=== PATIENT | female | born 1985 ===

== ENCOUNTER 2020-07-16 10:40 | Emergency (ER) | payer SELFPAY ==
[~2020-07-16] VITALS: Ht 165.1 cm; Wt 75.0 kg
[2020-07-16 10:42] VITALS: BP 136/86; Ht 165.1 cm; Wt 75.0 kg
[2020-07-16] MEDS ORDERED: EPIPEN 2-P0.3 MG/0.3 IM (10:43)
[2020-07-16] MEDS ORDERED: LUNESTA1 MG PO (10:43)
[2020-07-16] MEDS ORDERED: LIPITOR10 MG PO (10:44)
[2020-07-16] MEDS ORDERED: CLARITIN 10 MG10 MG PO (10:44)
[2020-07-16] MEDS ORDERED: FEXOFENADINE H180 MG PO (10:44)
[2020-07-16] MEDS ORDERED: ZYRTEC10 MG PO (10:44)
[2020-07-16] MEDS ORDERED: ZOLOFT50 MG PO (10:45)
[2020-07-16] MEDS ORDERED: COZAAR25 MG PO (10:45)
[2020-07-16] MEDS ORDERED: STRATTERA60 MG PO (10:46)
[2020-07-16 12:28] LABS: BASOPHILS 0.4 % (0-2); EOSINOPHILS 0.2 % (0-7); HEMATOCRIT 40.5 % (36.0-48.0); HEMOGLOBIN 13.3 g/dL (12-16); IMMATURE GRANULOCYTES 0.4 % (0-5); LYMPHOCYTES 12.9 % (15-50); MCH 29.2 pg (26.0-34.0); MCHC 32.8 g/dL (31.0-37.0); MCV 88.8 fL (80.0-100.0); MEAN PLATELET VOLUME 9.6 fL (7.4-10.4); MONOCYTES 1.8 % (2-11); NEUTROPHIL ABS# 13.74 10x3/uL (1.56-6.13); NEUTROPHILS 84.3 % (40-80); PLATELET COUNT 419 10x3/uL (130-400); RBC 4.56 10x6/uL (4.00-5.40); RDW 14.3 % (11.5-14.5); WBC 16.3 10x3/uL (4.8-10.8)
[2020-07-16 12:35] LABS: CALC OSMOLALITY 276 mosm/kg (275-300); CALCIUM 8.7 mg/dL (8.5-10.1); CARBON DIOXIDE 21.9 mmol/L (21.0-32.0); CHLORIDE - SERUM 102 mmol/L (98-107); CREATININE - SERUM 0.8 mg/dL (0.6-1.3); GLUCOSE 112 mg/dL (74-106); POTASSIUM - SERUM 3.3 mmol/L (3.5-5.1); SODIUM 138 mmol/L (136-145); UREA NITROGEN 13 mg/dL (7-18); eGFR NON AFRICAN AMERICAN 86 mL/min (90-120)
[2020-07-16 12:41] LABS: ALBUMIN 3.4 g/dL (3.4-5.0); ALKALINE PHOSPHATASE 77 U/L (30-120); ALT (SGPT) 21 U/L (10-68); BILIRUBIN - TOTAL 0.26 mg/dL (0.2-1.3); PROTEIN - SERUM 7.6 g/dL (6.4-8.2)
== END 2020-07-16 13:36 | disposition home or self-care (01) ==
LOC: D.ER 10:40
PROVIDERS: Emergency Medicine
DX: T78.40XA Allergy, unspecified, initial encounter (principal)